=== PATIENT | male | born 2000 | race Caucasian/White ===

== ENCOUNTER 2021-09-11 12:42 | Emergency (ER) | payer OTHER ==
--- NOTE | 2021-09-11 13:09 | ED Physician Documentation ---
PD HPI CHEST PAIN - Stated complaint Stated Complaint: RAPID HEART RATE - Chief complaint Chief Complaint: Cardiac - History obtained from History obtained from: Patient - History of Present Illness Timing - onset: How many months ago (8-9 months ago, shortly after getting COVID vaccine in Nov. Noted occasional surging feeling in chest.) Timing - onset during: Light activity (The patient has noted occasional episodes of pounding or fluttering in his chest that lasts for few seconds to a minute at a time. He actually notes it more with light activities and at rest. He is able to workout without any dyspnea or lightheadedness. Has noticed it more the last week or 2.) Timing - duration: Seconds, Minutes (he will feel the surging feeling interm ittently over a few minutes at times, otherwise more commonly isolated. Is happening more frequently the past couple of weeks.) Timing - details: Intermittant Quality: Pressure (feeling of irregularity of heart and some pressure. No pain.). No: Tightness Location: Substernal, Left chest Radiation: No: Jaw, Neck, Back Worsened by: Exertion (he states he feels it more with light activity, like walking around, but not during vigorous activity like working out. Only occasio katarina noting it when resting/going to sleep.). No: Inspiration, Eating, Movement Associated symptoms: Palpitations. No: Shortness of air, Nausea, Feeling faint / dizzy, General Weakness Similar symptoms before: No diagnosis Recently seen: Not recently seen Review of Systems Constitutional: denies: Fever, Chills Nose: denies: Rhinorrhea / runny nose, Congestion Throat: denies: Sore throat Respiratory: denies: Cough Neurologic: denies: Generalized weakness, Near syncope, Altered mental status, Headache Psychiatric: denies: Insomnia Endocrine: denies: Weight loss, Weight gain PD PAST MEDICAL HISTORY - Past Medical History Cardiovascular: None Respiratory: None Neuro: None Endocrine/Autoimmune: None - Allergies Allergies/Adverse Reactions: Allergies Allergy/AdvReac Type Severity Reaction Status Date / Time No Known Drug Allergies Allergy Verified 09/11/21 12:49 - Living Situation Living Situation: reports: With spouse/s.o. Living Arrangement: reports: At home - Social History Does the pt smoke?: No Does the pt drink ETOH?: Yes ETOH Use: Other (infrequent, about a drink every 2 weeks. Denies regular caffeine (an energy drink every 2-3 days or so)) PD ED PE NORMAL - Vitals Vital signs reviewed: Yes - General General: Alert and oriented X 3, No acute distress, Well developed/nourished - HEENT HEENT: Pharynx benign - Neck Neck: Supple, no meningeal sign, No adenopathy - Cardiac Cardiac: RRR, No murmur - Respiratory Respiratory: Clear bilaterally - Abdomen Abdomen: Soft, Non tender - Derm Derm: Normal color, Warm and dry - Extremities Extremities: No tenderness to palpate, Normal ROM s pain, No edema, No calf tenderness / cord - Neuro Neuro: Alert and oriented X 3, No motor deficit, Normal speech Results - Vitals Vitals: Vital Signs - 24 hr 09/11/21 09/11/21 12:44 15:04 Temperature 36.7 C 36.6 C Heart Rate 80 61 Respiratory 14 16 Rate Blood Pressure 132/80 H 117/76 O2 Saturation 100 99 Oxygen O2 Source Room air - EKG (time done) 12:50 Rate: Rate (enter#) (73) Rhythm: NSR [place]: Normal Intervals: Normal [place] QRS: Normal Ischemia: Normal ST segments. No: ST elevation c/w ischemia, ST depression - Tele (time rhythm occurred) while in ER - noted in particular at 14:00 Telemetry / rhythm strip: NSR, Other (he states he felt one of the surge feeling in chest at 14:00 in the ER. Monitor recording showed a PVC occuring at that time. ) - Labs Labs: Laboratory Tests 09/11/21 09/11/21 09/11/21 13:51 13:51 13:51 WBC RBC Hgb Hct MCV MCH MCHC RDW Plt Count MPV Neut # (Auto) Lymph # (Auto) [place] # (Auto) Eos # (Auto) Baso # (Auto) Absolute Nucleated RBC Nucleated RBC % ESR Sodium Potassium Chloride Carbon Dioxide Anion Gap BUN Creatinine Estimated GFR (MDRD) Glucose Calcium Magnesium Total Bilirubin AST ALT Alkaline Phosphatase Troponin I High Sens 8.7 B-Natriuretic Peptide 24 Total Protein Albumin Globulin Albumin/Globulin Ratio Lipase TSH 1.88 09/11/21 09/11/21 09/11/21 13:54 13:54 13:54 WBC 5.1 RBC 4.92 Hgb 14.1 Hct 42.0 MCV 85.4 MCH 28.7 MCHC 33.6 RDW 13.1 Plt Count 232 MPV 10.8 Neut # (Auto) 2.4 Lymph # (Auto) 1.8 [place] # (Auto) 0.6 Eos # (Auto) 0.2 Baso # (Auto) 0.1 Absolute Nucleated RBC 0.00 Nucleated RBC % 0.0 ESR 2 Sodium 140 Potassium 3.9 Chloride 106 Carbon Dioxide 24 Anion Gap 10.0 BUN 18 Creatinine 1.0 Estimated GFR (MDRD) 94 Glucose 97 Calcium 9.3 Magnesium 2.2 Total Bilirubin 0.6 AST 32 ALT 23 Alkaline Phosphatase 70 Troponin I High Sens B-Natriuretic Peptide Total Protein 7.3 Albumin 4.5 Globulin 2.8 Albumin/Globulin Ratio 1.6 Lipase 32 TSH PD MEDICAL DECISION MAKING - ED course Complexity details: reviewed results (he did have feeling of one of the surges while in ER and it timed with an isolated PVC. He may still likely benefit from Holter/Ziopatch to ensure no other rhythm disturbance. Consider ETT as well since he feels they are more prominent with light activity.), considered differential, d/w patient Departure - Departure Disposition: 01 Home, Self Care Clinical Impression: Heart palpitations, PVC (premature ventricular contraction) Condition: Stable Record reviewed to determine appropriate education?: Yes Instructions: ED Palpitations Follow-Up: KEVIN Gonzalez [Provider Group] Comments: Your blood count, electrolytes, kidney function, thyroid screen and blood sugar are normal. So are your troponin and BNP which are measures of heart muscle injury or heart failure. Your EKG appears normal. Your monitoring analyst showed a PVC at the time that you felt some of the symptoms. It would make sense to ensure that what you are feeling the rest of the time is the same thing and benign in nature. [place] a cardiac monitor technician that you wear to record your rhythm over the course of a week or so. Different brand names for these are Holter monitor, Zio patch, etc. This record your rhythm over the course of a week to ensure no more significant abnormalities. Meanwhile continue to stay well-hydrated. No caffeine. Return if increased symptoms or associated with chest pain, near fainting, short of breath, etc. Discharge Date/Time: 09/11/21 15:11
[2021-09-11 14:01] LABS: BASOPHILS # (AUTO) 0.1 10^3/uL (0.0-0.1); EOSINOPHILS # (AUTO) 0.2 10^3/uL (0.0-0.7); EOSINOPHILS % (AUTO) 3.1 %; HGB - HEMOGLOBIN 14.1 g/dL (14.0-18.0); LYMPHOCYTES # (AUTO) 1.8 10^3/uL (1.5-3.5); LYMPHOCYTES % (AUTO) 36.2 %; MEAN CORPUSCULAR HEMOGLOBIN 28.7 pg (27.0-31.0); MEAN CORPUSCULAR HGB CONC 33.6 g/dL (32.0-36.0); MEAN CORPUSCULAR VOLUME 85.4 fL (80.0-94.0); MEAN PLATELET VOLUME 10.8 fL (7.4-11.4); MONOCYTES # (AUTO) 0.6 10^3/uL (0.0-1.0); MONOCYTES % (AUTO) 11.4 %; NEUTROPHILS # (AUTO) 2.4 10^3/uL (1.5-6.6); NEUTROPHILS % (AUTO) 48.1 %; PLT - PLATELET COUNT 232 10^3/uL (130-450); RED BLOOD COUNT 4.92 10^6/uL (4.70-6.10); RED CELL DISTRIBUTION WIDTH 13.1 % (12.0-15.0); WHITE BLOOD COUNT 5.1 x10^3/uL (4.8-10.8)
[2021-09-11 14:14] LABS: ALBUMIN 4.5 g/dL (3.2-5.5); ALBUMIN/GLOBULIN RATIO 1.6 (1.0-2.2); BILIRUBIN,TOTAL 0.6 mg/dL (0.2-1.0); CALCIUM 9.3 mg/dL (8.5-10.3); MAGNESIUM 2.2 mg/dL (1.7-2.8); POTASSIUM 3.9 mmol/L (3.5-5.0); TOTAL PROTEIN 7.3 g/dL (6.7-8.2)
[2021-09-11 15:05] VITALS: BP 117/76
== END 2021-09-11 15:11 | disposition home or self-care (01) ==
LOC: ED 12:42
DX: R00.2 Palpitations (principal); I49.3 Ventricular premature depolarization
CPT/HCPCS: 36415; 80053; 83690; 83735; 83880; 84443; 84484; 85025; 85651; 93005; 99282; 99284

== ENCOUNTER 2022-03-06 12:05 | Outpatient (CLI) | payer OTHER | END 2022-03-06 12:06 | disposition home or self-care (01) | LOC: LAB 12:05 | PROVIDERS: ATTEND Internal Medicine Cardiovascular Disease | DX: R00.2 Palpitations (principal); I49.3 Ventricular premature depolarization; U09.9 Post COVID-19 condition, unspecified | CPT/HCPCS: 36415; 84484 ==